=== PATIENT | female | born 1995 | race Caucasian/White ===

== ENCOUNTER 2019-12-30 10:23 | Emergency (ER) | payer MEDICAID ==
[~2019-12-30] VITALS: Ht 162 cm; Wt 100.0 kg
[~2019-12-30 10:23] MED LIST: ACHD5005 PO; ALBU8.5H2 IH; CETI10TA17 PO; IBP600T1 PO; LRT10T PO; NASAL SPRAY; OMEP20TA2 PO; PREN-107 PO
--- NOTE | 2019-12-30 11:31 | Diagnostic Imaging Report ---
EXAM: KNEE, RIGHT, 3 VIEWS INDICATION: Right knee pain. COMPARISON: None. FINDINGS: No fracture or malalignment. No suspicious osteoblastic or lytic lesions. Soft tissue shadows are unremarkable. IMPRESSION: No acute radiographic findings in the right knee. Dictated by: Dictated on workstation # [id number]
[2019-12-30] MEDS ORDERED: IBUPROFEN TABLET 200 MG TAB PO STA (11:35)
--- NOTE | 2019-12-30 11:48 | ED Lower Extremity ---
General Chief Complaint: Lower Extremity Stated Complaint: R KNEE INJ Nursing Triage Note: PT CO OF R KNEE PAIN AFTER TWISTING IT THIS AM Nursing Sepsis Screen: No Definite Risk History of Present Illness Date Seen by Provider: Dec 30, 2019 Time Seen by Provider: 11:20 Initial Comments 24 year old female reports twisting her right knee yesterday evening prompting her to fall. She believes it was a valgus type injury. She iced it last night but continued to have symptoms of pain and difficulty ambulating today. She's had no previous history of injuries to her knee. She has not taken any pain medication prior to arrival. No other injuries at the time of the accident. Onset: yesterday Pain/Injury Location: right knee Method of Injury: fell, twisted Modifying Factors: Improves With Rest Allergies and Home Medications Allergies Coded Allergies: No Known Drug Allergies (Unverified , 11/02/12) Home Medications Albuterol 8.5 Gm Hfa.aer.ad, 8.5 GM IH DAILY PRN, (Reported) 2 PUFFS Hydrocodone Bit/Acetaminophen 1 Tab Tab, 1 TAB PO Q4H PRN for PAIN Prescribed by: MIKAYLA CHAVEZ on 02/13/15 0751 Ibuprofen 600 Mg Tab, 600 MG PO Q6H Prescribed by: MIKAYLA CHAVEZ on 02/13/15 0751 Patient Home Medication List Home Medication List Reviewed: Yes Review of Systems Constitutional: no symptoms reported, see HPI Musculoskeletal: see HPI, joint pain (right knee) All Other Systems Reviewed Negative Unless Noted: Yes Past Yifyalw-Tlzrgw-Yewqtw Hx Past Med/Social Hx: Reviewed Nursing Past Med/Soc Hx Patient Social History Alcohol Use: Denies Use Recreational Drug Use: No Smoking Status: Never a Smoker Recent Foreign Travel: No Contact w/Someone Who Travel: No Recent Infectious Disease Expo: No Recent Hopitalizations: No Physical Abuse: No Sexual Abuse: No Immunizations Up To Date Tetanus Booster (TDap): Unknown Date of Influenza Vaccine: Aug 07, 2012 Seasonal Allergies Seasonal Allergies: Yes Past Medical History Surgeries: Yes (CYST REMOVED FROM SINUSES 2012) Respiratory: Yes Asthma Cardiac: No Neurological: No Headaches /Migraines Last Menstrual Period: Dec 23, 2019 Reproductive Disorders: No Female Reproductive Disorders: Denies Sexually Transmitted Disease: No HIV/AIDS: No Gastrointestinal: No Musculoskeletal: No Endocrine: No Loss of Vision: Denies Hearing Impairment: Denies Cancer: No Psychosocial: No Integumentary: No Blood Disorders: No Family Medical History AIDS Hypertension 19 MOTHER (7 years ago) Physical Exam Vital Signs Vital Signs - First Documented 12/30/19 10:25 Temp 36.6 Pulse 85 Resp 16 B/P (MAP) 110/78 (89) Pulse Ox 99 Capillary Refill : Less Than 3 Seconds Height, Weight, BMI Height: 5'2.50" Weight: 204lbs. oz. 92.001040zi; 38.00 BMI Method: General Appearance: WD/WN, no apparent distress Cardiovascular: normal peripheral pulses, regular rate, rhythm Respiratory: chest non-tender, lungs clear, normal breath sounds Knees: right knee normal range of motion, right knee joint effusion, right knee soft tissue tenderness (over the MCL and medial joint line), right knee swelling, right knee other (patient has laxity and pain with valgus stress testing. Negative Lockman, anterior and posterior drawer. Pain with Keith maneuver. Small joint effusion. Able to perform straight leg raise. Neurovascular status is intact right lower extremity symmetric with the left.) Neurologic/Tendon: normal sensation, normal motor functions, normal tendon functions Neurologic/Psychiatric: no motor/sensory deficits, alert, normal mood/affect, oriented x 3 Progress/Results/Core Measures Results/Orders My Orders Orders - LOI SAUCEDO Knee, Right, 3 Views (12/30/19 11:06) Ibuprofen Tablet (Motrin Tablet) (12/30/19 11:35) Vital Signs/I&O 12/30/19 10:25 Temp 36.6 Pulse 85 Resp 16 B/P (MAP) 110/78 (89) Pulse Ox 99 Blood Pressure Mean: 89 Departure Impression Primary Impression: MCL sprain of right knee Qualified Codes: S83.411A - Sprain of medial collateral ligament of right knee, initial encounter Additional Impression: Effusion of right knee joint Disposition: 01 HOME, SELF-CARE Condition: Improved Departure-Patient Inst. Decision time for Depature: 11:45 Referrals: MIKAYLA CHAVEZ MD (PCP/Family) Primary Care Physician Patient Instructions: Knee Sprain (DC), Ligament Injuries in the Knee (DC) Add. Discharge Instructions: Ice and elevate right knee for 20 minutes every 2 hours. Use the Bryan wrap, crutches and knee brace. Follow-up with Dr. Chavez if symptoms are not improving or worsens. You may need referral to Orthopedics or for an MRI, these can be scheduled by your Primary Care Provider. You may alternate Tylenol 650 mg and ibuprofen 600 mg every 4 hours for pain and swelling. Return to the emergency department for new, urgent health care problems. All discharge instructions reviewed with patient and/or family. Voiced understanding. Work/School Note: Work Release Form Date Seen in the Emergency Department: Dec 30, 2019 Return to Work: Jan 02, 2020 Other Restrictions Listed Below: Will need brace and crutches, until able to walk without pain Copy Copies To 1: MIKAYLA CHAVEZ MD, AMY ARNP Dec 30, 2019 11:48
[2019-12-30 11:55] VITALS: BP 110/78
== END 2019-12-30 11:55 | disposition home or self-care (01) ==
LOC: EDUNIT# 10:23 → ER 10:24
DX: S83.411A Sprain of medial collateral ligament of right knee, initial encounter (principal); M25.461 Effusion, right knee; J45.909 Unspecified asthma, uncomplicated; X50.1XXA Overexertion from prolonged static or awkward postures, initial encounter; W18.39XA Other fall on same level, initial encounter
CPT/HCPCS: 73562

== ENCOUNTER 2020-03-11 18:47 | Emergency (ER) | payer BC, MEDICAID ==
[~2020-03-11] VITALS: Ht 162.5 cm; Wt 97.5 kg
[2020-03-11] MEDS ORDERED: methylPREDNISolone 125 MG (Solu-MEDROL) VIAL IV STA (19:01)
[2020-03-11] MEDS ORDERED: LACTATED RINGERS 1,000 ML IV ONE (19:01)
[2020-03-11 19:11] VITALS: BP_SYST 109; BP_SYST 120; BP_SYST 121; BP_DIAS 76; BP_DIAS 82
--- NOTE | 2020-03-11 19:14 | ED Integumentary General ---
General Chief Complaint: Skin/Wound Problems Stated Complaint: R LEG SPIDER BITE Source: patient History of Present Illness Date Seen by Provider: March 11, 2020 Time Seen by Provider: 18:56 Initial Comments PT ARRIVES VIA POV STATES A WEEK AGO, SHE NOTICED A RED PAINFUL AREA TO HER RIGHT MEDIAL THIGH--THOUGHT SHE MIGHT HAVE BEEN BITTEN BY A SPIDER OR SOMETHING, BUT DID NOT SEE OR FEEL ANYTHING BITE HER THE AREA HAS SIGNIFICANTLY INCREASED IN SIZE AND BECOME MORE PAINFUL OVER THE L AST FEW DAYS TODAY SHE HAD NAUSEA AND VOMITED, AND THEN GOT DIZZY AND PASSED OUT AT WORK. NO INJURY NO FEVER/SWEATS/CHILLS NO ABDOMINAL PAIN OR DIARRHEA NO OTHER SYMPTOMS LAST TETANUS SHOT UNKNOWN LMP 03/05/20--NO CONTROL. PCP: DR. CHAVEZ Allergies and Home Medications Allergies Coded Allergies: No Known Drug Allergies (Unverified , 11/02/12) Home Medications Albuterol 8.5 Gm Hfa.aer.ad, 8.5 GM IH DAILY PRN, (Reported) 2 PUFFS Dapsone 100 Mg Tablet, 50 MG PO DAILY Prescribed by: MARIA DE JESUS HAIRSTON on 03/11/201951 Hydrocodone Bit/Acetaminophen 1 Tab Tab, 1 TAB PO Q4H PRN for PAIN Prescribed by: MIKAYLA CHAVEZ on 02/13/15750 Ibuprofen 600 Mg Tab, 600 MG PO Q6H Prescribed by: MIKAYLA CHAVEZ on 02/13/15750 Patient Home Medication List Home Medication List Reviewed: Yes Review of Systems Review of Systems Constitutional: see HPI; No chills, No diaphoresis; dizziness; No fever, No malaise, No weakness EENTM: no symptoms reported Respiratory: no symptoms reported; No cough, No dyspnea on exertion, No short of breath, No wheezing Cardiovascular: see HPI; No chest pain, No palpitations; syncope Gastrointestinal: see HPI; No abdominal pain; nausea, vomiting Genitourinary: no symptoms reported LMP: Mar 05, 2020 Musculoskeletal: see HPI Skin: see HPI Psychiatric/Neurological: No Symptoms Reported; Denies Headache, Denies Numbness, Denies Paresthesia, Denies Seizure, Denies Tingling, Denies Weakness Endocrine: No Symptoms Reported Hematologic/Lymphatic: No Symptoms Reported Past Gwgjuxz-Iulbgf-Jtiitg Hx Past Med/Social Hx: Reviewed and Corrections made Patient Social History Alcohol Use: Denies Use Recreational Drug Use: No Smoking Status: Never a Smoker 2nd Hand Smoke Exposure: No Recent Foreign Travel: No Contact w/Someone Who Travel: No Recent Hopitalizations: No Physical Abuse: No Sexual Abuse: No Mistreated: No Immunizations Up To Date Tetanus Booster (TDap): Unknown Date of Influenza Vaccine: Aug 07, 2012 Seasonal Allergies Seasonal Allergies: Yes Past Medical History Surgeries: Yes (CYST REMOVED FROM SINUSES 2012) Respiratory: Yes Asthma Cardiac: No Neurological: Yes Headaches /Migraines Reproductive Disorders: No Female Reproductive Disorders: Denies Sexually Transmitted Disease: No HIV/AIDS: No Genitourinary: No Gastrointestinal: No Musculoskeletal: No Endocrine: No Loss of Vision: Denies Hearing Impairment: Denies Cancer: No Psychosocial: No Integumentary: No Blood Disorders: No Family Medical History AIDS Hypertension 19 MOTHER (7 years ago) Physical Exam Vital Signs Vital Signs - First Documented 03/11/20 18:55 Temp 36.6 Pulse 94 Resp 18 B/P (MAP) 120/76 (91) Pulse Ox 98 O2 Delivery Room Air Capillary Refill : General Appearance: WD/WN, no apparent distress, other (SMILING, VERY PLEASANT) HEENT: PERRL/EOMI, normal ENT inspection Neck: normal inspection Cardiovascular: normal peripheral pulses, regular rate, rhythm, no murmur Respiratory: normal breath sounds, no respiratory distress, no accessory muscle use Gastrointestinal: normal bowel sounds, non tender, soft Back: normal inspection Extremities: normal range of motion, no calf tenderness, other (RIGHT MEDIAL THIGH WITH AREA OF ERYTHEMA 8 X 12.5 CM, WITH 3 4 CM CENTRAL CLEARING/PALENESS, SURROUNDED BY ECCHYMOTIC/DUSKY RING. QUESTIONABLE CENTRAL PUNCTATION. NO FLUCTUANCE. NO SWELLING. NO DRAINAGE. NO STREAKS. NO EVIDENCE OF ABSCESS. ) Neurologic/Psychiatric: runner out II-XII nml as tested, no motor/sensory deficits, alert, normal mood/affect, oriented x 3 Skin: normal color, warm/dry, tattoos/piercings (TATTOOS), other ( ABOVE) Progress/Results/Core Measures Results/Orders Lab Results Laboratory Tests Test 03/11/20 19:05 Range/Units White Blood Count 8.7 4.3-11.0 10^3/uL Red Blood Count 4.93 4.35-5.85 10^6/uL Hemoglobin 13.8 11.5-16.0 G/DL Hematocrit 41 35-52 % Mean Corpuscular Volume 83 80-99 FL Mean Corpuscular Hemoglobin 28 25-34 PG Mean Corpuscular Hemoglobin Concent 34 32-36 G/DL Red Cell Distribution Width 14.5 10.0-14.5 % Platelet Count 320 130-400 10^3/uL Mean Platelet Volume 9.3 7.4-10.4 FL Neutrophils (%) (Auto) 73 42-75 % Lymphocytes (%) (Auto) 18 12-44 % Monocytes (%) (Auto) 7 0-12 % Eosinophils (%) (Auto) 2 0-10 % Basophils (%) (Auto) 0 0-10 % Neutrophils # (Auto) 6.3 1.8-7.8 X 10^3 Lymphocytes # (Auto) 1.6 1.0-4.0 X 10^3 Monocytes # (Auto) 0.6 0.0-1.0 X 10^3 Eosinophils # (Auto) 0.2 0.0-0.3 10^3/uL Basophils # (Auto) 0.0 0.0-0.1 10^3/uL Erythrocyte Sedimentation Rate 8 0-20 MM/HR Prothrombin Time 13.4 12.2-14.7 SEC INR Comment 1.0 0.8-1.4 Activated Partial Thromboplast Time 23 L 24-35 SEC Sodium Level 137 135-145 MMOL/L Potassium Level 3.9 3.6-5.0 MMOL/L Chloride Level 105 98-107 MMOL/L Carbon Dioxide Level 18 L 21-32 MMOL/L Anion Gap 14 5-14 MMOL/L Blood Urea Nitrogen 11 7-18 MG/DL Creatinine 0.78 0.60-1.30 MG/DL Estimat Glomerular Filtration Rate > 60 BUN/Creatinine Ratio 14 Glucose Level 91 70-105 MG/DL Calcium Level 9.6 8.5-10.1 MG/DL Corrected Calcium 9.2 8.5-10.1 MG/DL Total Bilirubin 0.3 0.1-1.0 MG/DL Aspartate Amino Transf (AST/SGOT) 19 5-34 U/L Alanine Aminotransferase (ALT/SGPT) 16 0-55 U/L Alkaline Phosphatase 97 40-136 U/L Total Creatine Kinase 74 29-168 U/L Creatine Kinase MB 0.9 <6.6 NG/ML Myoglobin 65.9 10.0-92.0 NG/ML C-Reactive Protein High Sensitivity 0.56 H 0.00-0.50 MG/DL Total Protein 7.8 6.4-8.2 GM/DL Albumin 4.5 3.2-4.5 GM/DL Serum Test, Qualitative NEGATIVE NEGATIVE My Orders Orders - MARIA DE JESUS HAIRSTON DO Ed Iv/Invasive Line Start (03/11/20:01) Monitor-Rhythm Ecg Trace Only (03/11/20:) Orthostatic Vital Signs (Adult (03/11/20:) Cbc With Automated Diff (03/11/20:) Comprehensive Metabolic Panel (03/11/20:) Creatine Kinase (03/11/20:) Creatine Kinase Mb (03/11/20:) Hs C Reactive Protein (03/11/20:) Erythrocyte Sedimentation Rate (03/11/20:) Hcg,Qualitative Serum (03/11/20:) Protime With Inr (03/11/20:) Partial Thromboplastin Time (03/11/20:) Myoglobin Serum (03/11/20:) Ed Iv/Invasive Line Start (03/11/20:) Lactated Ringers (Lr 1000 Ml Iv Solution (03/11/20 19:01) Cefazolin Injection (Ancef Injection) (03/11/20 19:15) Methylprednisolone Sod Succ (Solu-Medrol (03/11/20 19:01) Dipht,Pertuss(Acell),Tet Adult (Boostrix (03/11/20 19:15) Dapsone Tablet (Dapsone Tablet) (03/11/20 20:00) Medications Given in ED Current Medications Medications Dose Ordered Sig/Devan Route Start Time Stop Time Status Last Admin Dose Admin Cefazolin Sodium 1000 mg/Sterile Water 10 ml @ 200 mls/hr ONCE ONCE IV 03/11/20 19:15 03/11/20 19:17 DC 03/11/20 19:17 200 MLS/HR Diphtheria/ Tetanus/Acell Pertussis 0.5 ml ONCE ONCE IM 03/11/20 19:15 03/11/20 19:16 DC 03/11/20 19:51 0.5 ML Lactated Ringer's 1,000 ml @ 0 mls/hr Q0M ONCE IV 03/11/20 19:01 03/11/20 19:05 DC 03/11/20 19:14 1,000 MLS/HR Vital Signs/I&O 03/11/20 03/11/20 18:55 19:11 Temp 36.6 Pulse 94 94 80 88 Resp 18 B/P (MAP) 120/76 (91) 120/76 (91) 121/76 (91) 109/82 (91) Pulse Ox 98 O2 Delivery Room Air Progress Progress Note : Progress Note UNEVENTFUL ER STAY Departure Communication (Admissions) 1944--SPOKE WITH DR. SAHA, SURGEON RECOVERY COACH. HE WILL SEE PT IN OFFICE TOMORROW AFTERNOON. ADVISES DAPSONE Impression Primary Impression: Cellulitis of right thigh Additional Impressions: POSSIBLE SPIDER /INSECT BITE Ntxsmqvvuo-jacjkwztw-rgrsuwk (DPT) vaccination administered at current visit REPORTED SYNCOPAL EPISODE Disposition: HOME, SELF-CARE Condition: Stable Departure-Patient Inst. Referrals: NELSON SAHA DANIEL J MD (PCP/Family) Primary Care Physician Patient Instructions: Cellulitis (Skin Infection), Adult (DC), Diphtheria and Tetanus Toxoids, and Acellular Pertussis Vaccine, Insect Bites and Stings (DC), Spider Bites Add. Discharge Instructions: COOL COMPRESSES TO THE AREA AT 20 MINUTE INTERVALS FOLLOW UP WITH DR. SAHA IN 1-2 DAYS FOR FURTHER CARE All discharge instructions reviewed with patient and/or family. Voiced understanding. Scripts Dapsone (Dapsone) 100 Mg Tablet 50 MG PO DAILY, #10 TAB Prov: MARIA DE JESUS HAIRSTON DO 03/11/20 MARIA DE JESUS HAIRSTON DO March 11, 2020 19:13
[2020-03-11 19:15] LABS: BASOPHILS % (AUTO) 0 % (0-10); EOSINOPHILS # (AUTO) 0.2 10^3/uL (0.0-0.3); EOSINOPHILS % (AUTO) 2 % (0-10); HEMATOCRIT 41 % (35-52); HEMOGLOBIN 13.8 G/DL (11.5-16.0); LYMPHOCYTES # (AUTO) 1.6 X 10^3 (1.0-4.0); LYMPHOCYTES % (AUTO) 18 % (12-44); MEAN CORPUSCULAR HEMOGLOBIN 28 PG (25-34); MEAN CORPUSCULAR HGB CONC 34 G/DL (32-36); MEAN CORPUSCULAR VOLUME 83 FL (80-99); MEAN PLATELET VOLUME 9.3 FL (7.4-10.4); MONOCYTES # (AUTO) 0.6 X 10^3 (0.0-1.0); MONOCYTES % (AUTO) 7 % (0-12); NEUTROPHILS # (AUTO) 6.3 X 10^3 (1.8-7.8); NEUTROPHILS % (AUTO) 73 % (42-75); PLATELET COUNT 320 10^3/uL (130-400); RED CELL DISTRIBUTION WIDTH 14.5 % (10.0-14.5); WHITE BLOOD COUNT 8.7 10^3/uL (4.3-11.0)
[2020-03-11] MEDS ORDERED: ceFAZolin INJECTION 1,000 MG in WATER (STERILE) FOR INJECTION 10 ML IV ONE (19:15)
[2020-03-11] MEDS ORDERED: TETANUS,DIPTH,PERTUSS P/F (BOOSTRIX) 0.5 ML VIAL IM ONE (19:15)
[2020-03-11 19:26] LABS: ALBUMIN 4.5 GM/DL (3.2-4.5); CHLORIDE 105 MMOL/L (98-107); POTASSIUM 3.9 MMOL/L (3.6-5.0); SODIUM 137 MMOL/L (135-145)
[2020-03-11 19:27] LABS: CALCIUM 9.6 MG/DL (8.5-10.1)
[2020-03-11 19:28] LABS: GLUCOSE 91 MG/DL (70-105); TOTAL PROTEIN 7.8 GM/DL (6.4-8.2)
[2020-03-11 19:29] LABS: CARBON DIOXIDE 18 MMOL/L (21-32)
[2020-03-11 19:30] LABS: BILIRUBIN,TOTAL 0.3 MG/DL (0.1-1.0); PROTHROMBIN TIME PATIENT 13.4 SEC (12.2-14.7)
[2020-03-11 19:32] LABS: ALKALINE PHOSPHATASE 97 U/L (40-136); CREATININE SERUM 0.78 MG/DL (0.60-1.30); GFR ESTIMATED > 60
[2020-03-11 19:33] LABS: BUN/CREATININE RATIO 14
[2020-03-11 19:35] LABS: ALANINE AMINOTRANSFERASE 16 U/L (0-55); CREATINE KINASE 74 U/L (29-168)
--- NOTE | 2020-03-11 19:35 | NUR ---
report given to Girish to assume care of pt at this time.
[2020-03-11 19:39] LABS: ERYTHROCYTE SEDIMENTATION RATE 8 MM/HR (0-20)
[2020-03-11 19:42] LABS: CREATINE KINASE MB 0.9 NG/ML (<6.6)
[2020-03-11] MEDS ORDERED: DAPS100T3 PO (19:52)
[2020-03-11] MEDS ORDERED: DAPSONE 100 MG TABLET PO SCH (20:00)
[2020-03-11 20:10] VITALS: BP 121/87
--- OUTSIDE RECORDS SUMMARY | 2020-03-11 21:12 | XMS REPORT ---
Author Author [facility] Address [address] [place] [address] Care Team Providers Care Brim Greaser Operator Name Role Phone NO, LOCAL PHYSICIAN Unavailable Unavailable MARYANN DENIS, JULIA Choi Unavailable Unavailable LEWIS TATE, LOI L Unavailable Unavailable SCOTT DENIS, MIKAYLA Wang Unavailable Unavailable CARLOS SANTORO APRN Unavailable Unavailable SCOTT DENIS, MIKAYLA Wang Unavailable Unavailable MAYITO VYAS MD Unavailable Unavailable Unavailable Unavailable Allergies The data below is from unstructured sources Allergen Type Severity Reaction Status Last Updated No Known Drug Allergies Active 11/02/12 Medications No Information Problems Problem Normalized Date Last Normalized Normalized Provider Fa cility Classification Problem(s) Recorded Problem Problem Sta tus Duration Acute Acute Episodic Active KELLY MARS Via posthemorrhagi posthemorrhagi MD Kaya clement anemia (2 c anemia Hospital - sources.) [place] ([address]159) Other Anemia of Chronic Active KELLY MARS Via complications mother, [facility] of ; delivered, Hospital - puerperium with mention [place] affecting of (27191) management of complication mother (2 sources.) Other Effusion, Episodic Active LOI SAUCEDO [facility] Via non-traumatic right knee [facility] joint Hospital - disorders (5 [place] sources.) (38260) Immunizations Need for Episodic Active KELLY MARS Via and screening prophylactic MD [facility] for infectious vaccination Hospital - disease (4 and [place] sources.) inoculation (81005) against diphtheria-tet anus-pertussis , combined [DTP] [DTaP] Translations: [ PROPHYLACTIC VACC AGAINST STREPTOCOCCUS ] External cause Other fall on Episodic Active LOI SAUCEDO [facility] Via codes: Fall (5 same level, REPORT ANALYST [facility] sources.) initial Hospital - encounter [place] ([address]370) Other Other Episodic Active KELLY MARS Via screening for specified [facility] suspected Hospital - conditions screening [place] (not mental (72782) disorders or infectious disease) (2 sources.) External cause Overexertion Episodic Active LOI LEWIS , [facility] Via codes: from prolonged [facility] Natural/enviro static or Hospital - nment (5 awkward [place] sources.) postures, (83196) initial encounter Other Pain in right Episodic Active LOI VELAZQUEZE , [facility] Via non-traumatic knee [facility] joint Hospital - disorders (5 [place] sources.) (20235) Prolonged Post term Episodic Active MIKAYLA CHAVEZ , [facility] Via (2 , [facility] sources.) delivered, Hospital - with or [place] without (00733) mention of antepartum condition Sprains and Sprain of Episodic Active LOI LEWIS , [facility] Via strains (5 medial [facility] sources.) collateral Hospital - ligament of [place] right knee, (54889) initial encounter Other Supervision of Episodic Active CARLOS SANTORO , [facility] Via and normal first [facility] [place] delivery Hospital - including Translations: [place] normal (3 [ (91831) sources.) DELIVER-SINGLE LIVEBORN] Asthma (5 Unspecified Chronic Active LOI LEWIS , [facility] Via sources.) asthma, [facility] uncomplicated [facility] ([id number]) Procedures Procedure Normalized Procedure Procedure Result Performer Facility Date 02-11-2015 Episiotomy no information no name [facility] Via [facility] ([id number]) 02-11-2015 Medical induction of no information no name [facility] Via [facility] labor [facility] (81507) Immunizations No Information Results No Information Vital Signs The data below is from unstructured sources Vital Response Date/Time Pulse Rate (Adolescent 12-19yrs) 87 bpm (56 - 106) Respiratory Rate (Adolescent 12-19yrs) 18 bpm (15 - 20) Blood Pressure / Blood Pressure Systolic (Adolescent 12-19yrs) 118 mm Hg (115 - 120) Pain Pain Intensity 0 Height (Feet) 5 feet Height (Inches) 4 inches Height (Calculated Centimeters) 162. 404337 cm Weight (Pounds) 175 pounds Weight (Calculated Kilograms) 79.378 666 kilograms Calculated BMI 30.03 Vital Response Date/Time Temperature (Fahrenheit) 97.1 degree s F (97.6 - 99.5) Temperature (Calculated Celsius) 36. 22613 degrees C (36.4 - 37.5) Temperature Source Tympanic Pulse Rate (adult) 100 bpm (60 - 90) Respiratory Rate 18 bpm (12 - 24) O2 Sat by Pulse Oximetry 98 % (88 - 100) Blood Pressure 113/73 mm Hg Pain Pain Intensity 3 Height (Feet) 5 feet Height (Inches) 2.50 inches Height (Calculated Centimeters) 158. 013699 cm Weight (Pounds) 204 pounds Weight (Calculated Grams) 59091.844 gm Weight (Calculated Kilograms) 92.532 844 kilograms Calculated BMI 36.71 Vital Response Date/Time Temperature (Fahrenheit) 97.1 degree s F (97.6 - 99.5) Temperature (Calculated Celsius) 36. 25753 degrees C (36.4 - 37.5) Temperature Source Tympanic Pulse Rate (adult) 100 bpm (60 - 90) Respiratory Rate 18 bpm (12 - 24) O2 Sat by Pulse Oximetry 98 % (88 - 100) Blood Pressure 113/73 mm Hg Pain Pain Intensity 3 Height (Feet) 5 feet Height (Inches) 2.50 inches Height (Calculated Centimeters) 158. 630188 cm Weight (Pounds) 204 pounds Weight (Calculated Grams) 39598.844 gm Weight (Calculated Kilograms) 92.532 844 kilograms Calculated BMI 36.71 Interventions No Information Plan of Treatment The data below is from unstructured sources Discharge Date 02/13/15 11:25am Disposition 30 STILL A PATIENT Instructions/Education Provided POST DISCHARGE VAGINAL DELIVERY DISCHARGE Your Baby (DC) Forms Provided PDI Prescriptions See Medications Sectio n Referrals MIKAYLA CHAVEZ MD (Unspeci fied) Address: [address], [address] [place] [phone] Reason(s) for Referral: CALL FOR AN APPOINTMENT TO SEE DR. CHAVEZ IN OFFICE IN 6 WEEKS. CALL BEFORE IF HAVING ANY PROBLEMS OR QUESTIONS. Care Plan and Goals FU with Dr. Amy duenas in 6 weeks. Goals No Information Social History No Information Functional Status The data below is from unstructured sourcesNo functional status results.No functional status results.No functional status results. Mental Status No Information Encounters Encounter Normalized Encounter Encounter Diagnosis Care Provi rc Organization Date Type 12-30-2019 Emergency department no information JULIA RECINOS MD [facility] - patient visit (no phone) LOI Daniels [facility] 12-30-2019 REPORT ANALYST (no phone) LOI Daniels (no phone) LEWIS REPORT ANALYST (no phone) LOI SAUCEDO REPORT ANALYST (no phone) 12-30-2019 Patient encounter no information LOI SAUCEDO REPORT ANALYST (n o [facility] Via [facility] procedure phone) [facility] (no phone) 10-10-2014 Patient encounter no information MIKAYLA CHAVEZ MD (no [facility] Via [facility] procedure phone) [facility] (no phone) Medical Equipment No Information Payers No Information Advance Directives Directive Response Recor ded Date/Time Advance Directives No 6:41pm Organ Donor Yes 08/10/14 6:41pm Resuscitation Status Full Code 08/10/14 6:41pm Directive Response Recor ded Date/Time Advance Directives No 8:31pm Health Care Power of Hospital Nursing Assistant No 02/10/15 8:31pm Organ Donor Yes 02/10/15 8:31pm Resuscitation Status Full Code 02/10/15 8:31pm Discharge Instructions No hospital discharge instructions.No hospital discharge instructions. Additional Source Comments This clinical document has been generated using [employer] software that has been certified by the Office of the National Coordinator for Health Information Technology (ONC 15.99.04.3023.Diam.31.00.0.528273) and the National Committee for Cell Phone Repair Technician (NCQA, as an eMeasure certified technology). FOR RECORDS PERTAINING TO PATIENTS WHO ARE OR HAVE BEEN ENROLLED IN A CHEMICAL D EPENDENCY/SUBSTANCE ABUSE PROGRAM, SOME INFORMATION MAY BE OMITTED. This clinica l summary was aggregated from multiple sources. Caution should be exercised in using it in the provision of clinical care. This summary normalizes information from multiple sources, and as a consequence, information in this document may ma terially change the coding, format and clinical context of patient data. In apryl tion, data may be omitted in some cases. CLINICAL DECISIONS SHOULD BE BASED ON T HE PRIMARY CLINICAL RECORDS. [employer]. provides no warranty or guara ntee of the accuracy or completeness of information in this document.The followi ng information is based on time limited clinical information
== END 2020-03-11 20:13 | disposition home or self-care (01) ==
LOC: EDUNIT# 18:47 → ER 18:49
DX: L03.115 Cellulitis of right lower limb (principal); R55 Syncope and collapse; J45.909 Unspecified asthma, uncomplicated; G43.909 Migraine, unspecified, not intractable, without status migrainosus; Z23 Encounter for immunization; Z82.49 Family history of ischemic heart disease and other diseases of the circulatory system
CPT/HCPCS: 36415; 80053; 82550; 82553; 83874; 84703; 85025; 85610; 85652; 85730; 86141; 90715; 93041